=== PATIENT | male | born 1985 | race Caucasian/White ===

== ENCOUNTER 2017-04-29 02:27 | Emergency (ER) | payer SELFPAY ==
[~2017-04-29] VITALS: Ht 185.4 cm; Wt 86.2 kg
[2017-04-29 02:27] VITALS: BP 146/96
[~2017-04-29 02:27] MED LIST: NKM
--- NOTE | 2017-04-29 04:10 | Emergency Room Report ---
History of Present Illness General Chief Complaint: Overdose Source: EMS Present Illness Allergies: Coded Allergies: No Known Allergies (Unverified , 04/29/17) Physical Exam Vital Signs Date Time Temp Pulse Resp B/P (MAP) Pulse Ox O2 Delivery O2 Flow Rate FiO2 04/29/17 02:18 96.8 81 20 146/96 99 Room Air Medical Decision Making Diagnostic Impression: Primary Impression: Drug overdose ER Course Per RN, patient refused property assessment monitor, refused to give urine for tox sample, stated friends were waiting for him, wanted to leave the ER, wouldnt wait for physician evaluation I never saw patient or examined him during his stay. Last Vital Signs Date Time Temp Pulse Resp B/P (MAP) Pulse Ox O2 Delivery O2 Flow Rate FiO2 04/29/17 02:27 81 20 Room Air 04/29/17 02:27 96.8 146/96 99 Disposition: ELOPED Referrals: NOT CHOSEN PUSHPA/,REFERRING (PCP) JANIYA RODRIGUEZ M.D. Apr 29, 2017 04:10
[2017-04-29 04:13] VITALS: BP 146/96
== END 2017-04-29 03:52 | disposition left against medical advice (07) ==
LOC: EDBD 02:27 → EMR 03:00
DX: T40.1X1A Poisoning by heroin, accidental (unintentional), initial encounter (principal); Y92.810 Car as the place of occurrence of the external cause
CPT/HCPCS: 99281